=== PATIENT | female | born 1950 | race Caucasian/White ===

== ENCOUNTER → 2017-07-08 | Outpatient (CLI) | payer OTHER, MEDICARE ==
[2017-07-08 12:29] LABS: MEAN CORPUSCULAR HGB CONC 33.8 g/dl (32-36); MEAN PLATELET VOLUME 11.2 fL (7.4-10.4); PLATELET COUNT 208 K/uL (130-400)
[2017-07-08 12:55] LABS: ALT/SGPT 69 U/L (12-78); AST/SGOT 40 U/L (15-37); BLOOD UREA NITROGEN 16 mg/dl (7-18); BUN/CREATININE RATIO 21.4 (10-20); CALCIUM 9.1 mg/dl (8.5-10.1); CARBON DIOXIDE 27 mmol/L (21-32); CHLORIDE 105 mmol/L (98-107); CHOLESTEROL 169 mg/dl (0-200); CREATININE 0.76 mg/dl (0.60-1.20); GLUCOSE 97 mg/dl (70-99); POTASSIUM 3.6 mmol/L (3.5-5.1); SODIUM 142 mmol/L (136-145)
[2017-07-08 12:58] LABS: HEMATOCRIT 39.7 % (37-47); MEAN CELL VOLUME 95.2 fL (80-100); MEAN CORPUSCULAR HEMOGLOBIN 32.1 pg (25-34); RED BLOOD COUNT 4.17 M/uL (4.2-5.4); WHITE BLOOD COUNT 8.94 K/uL (4.8-10.8)
[2017-07-08 12:59] LABS: ALB/GLOB RATIO 0.9 (0.9-2); ALKALINE PHOSPHATASE 73 U/L (45-117); BASO ABS # 0.08 K/uL (0-0.2); BASOPHIL % 0.9 %; CHOLESTEROL/HDL RATIO 2.3; COMPLETE YES; EOSINOPHIL % 2.6 %; HDL CHOLESTEROL 73 mg/dl; LARGE GRANULAR LYMPH ABSOLUTE 1.32 K/uL; LARGE GRANULAR LYMPHOCYTE % 14.8 %; LDL CHOLESTEROL CALCULATED 70 mg/dl; LYMPH ABS # 1.64 K/uL (1.2-3.4); LYMPHOCYTE % 18.3 %; NEUTROPHILS % 57.3 %; TRIGLYCERIDES 129 mg/dl (0-150); VERY LOW DENSITY LIPOPROT CALC 26 mg/dl
== END | disposition home or self-care (01) ==
LOC: C.LABMFLN 09:18
PROVIDERS: ATTEND Family Medicine
DX: I10 Essential (primary) hypertension (principal); E78.5 Hyperlipidemia, unspecified